=== PATIENT | male | born 1975 | race Caucasian/White ===

== ENCOUNTER 2018-07-01 13:32 | Emergency (ER) | payer SELFPAY ==
[2018-07-01] MEDS ORDERED: DICYCLOMINE HCL INJ 20 MG/2 ML AMPULE IM ONE (13:47)
[2018-07-01] MEDS ORDERED: ONDANSETRON HCL INJ/PF 4 MG/2 ML SDV IV ONE (13:47)
[2018-07-01] MEDS ORDERED: RINGERS SOLUTION,LACTATED 1,000 ML IV ONE (13:47)
[2018-07-01] MEDS ORDERED: DIAZEPAM 5 MG TABLET PO ONE (13:48)
--- NOTE | 2018-07-01 13:52 | ER Document Report ---
ED General - General Chief Complaint: Drug Abuse Stated Complaint: DRUG WITHDRAWAL Time Seen by Provider: 07/01/18 13:40 Mode of Arrival: Ambulatory Information source: Patient Notes: 42-year-old male with a history of heroin abuse presents with complaint of nausea, vomiting, myalgias, and generalized abdominal pain. Patient states symptoms started this morning. He states that he believes that he is going through withdrawal. He reports his last use of heroin was yesterday. He is a daily user. He denies any previous withdrawal, other illicit drugs or alcohol use. Patient did eat this morning. He has been in the methadone program but states that "it did not work". Patient denies any suicidal, homicidal ideation. Mother is at the bedside. TRAVEL OUTSIDE OF THE [place] IN LAST 30 DAYS: No - HPI Onset: Just prior to arrival Onset/Duration: Gradual, Persistent Quality of pain: Cramping Severity: Mild Associated symptoms: Body/muscle aches, Chills, Headache, Nausea, Vomiting, Sweating Exacerbated by: Denies Relieved by: Denies Similar symptoms previously: No Recently seen / treated by doctor: No - Related Data Allergies/Adverse Reactions: No Known Allergies Allergy (Verified 07/01/18 13:32) Past Medical History - General Information source: Patient, Parent, [facility] - Social History Smoking Status: Current Every Day Smoker Cigarette use (# per day): Yes - 15 Smoking Education Provided: Yes - Smoking cessation counseling was provided for 4 minutes at the bedside Frequency of alcohol use: None Drug Abuse: Heroin, Other - Methadone Lives with: Family Family History: Reviewed & Not Pertinent Patient has suicidal ideation: No Patient has homicidal ideation: No - Medical History Medical History: Negative Renal/ Medical History: Denies: Hx Peritoneal Dialysis Review of Systems - Review of Systems Notes: REVIEW OF SYSTEMS: CONSTITUTIONAL : Denies fever. Denies recent illness. Denies weight loss, recent hospitalizations. EENT: Denies visual changes, eye pain. Denies sore throat, oral lesions, difficulty swallowing. CARDIOVASCULAR: Denies chest pain. Denies palpitations. Denies lower extremity edema. RESPIRATORY: Denies cough. Denies shortness of breath, wheezing. GASTROINTESTINAL: Denies abdominal distention. Denies diarrhea. Denies blood in vomitus, stools, or per rectum. Denies black, tarry stools. Denies constipation. GENITOURINARY: Denies difficulty urinating, painful urination, frequency, blood in urine, testicular pain or penile discharge. MUSCULOSKELETAL: Denies back or neck pain or stiffness. Denies joint pain or swelling. SKIN: Denies rash, lesions or sores. HEMATOLOGIC : Denies easy bruising or bleeding. LYMPHATIC: Denies swollen glands. NEUROLOGICAL: Denies confusion or altered mental status. Denies loss of consciousness. Denies dizziness or lightheadedness. Denies headache. Denies weakness or paralysis. Denies problems difficulty with ambulation, slurred speech. Denies sensory loss, numbness, or tingling. Denies seizures. PSYCHIATRIC: Denies anxiety or stress. Denies depression, suicidal ideation, or Physical Exam - Vital signs Vitals: Temp Pulse Resp BP Pulse Ox 97.9 F 79 24 H 141/82 H 97 07/01/18 13:41 07/01/18 13:41 07/01/18 13:41 07/01/18 13:41 07/01/18 13:41 Interpretation: Hypertensive, Tachypneic - Notes Notes: PHYSICAL EXAMINATION: GENERAL: Ill-appearing, actively vomiting HEAD: Atraumatic, normocephalic. EYES: Pupils equal round and reactive to light, extraocular movements intact, sclera anicteric, conjunctiva are normal. ENT: Nares patent, oropharynx clear without exudates. Moist mucous membranes. NECK: Normal range of motion, supple without lymphadenopathy LUNGS: Breath sounds clear to auscultation bilaterally and equal. No wheezes rales or rhonchi. HEART: Regular rate and rhythm without murmurs ABDOMEN: Soft, nontender, nondistended abdomen. No guarding, no rebound. No masses appreciated. Musculoskeletal: Normal range of motion, no pitting or edema. No cyanosis. NEUROLOGICAL: Cranial nerves grossly intact. Normal speech, normal gait. Normal sensory, motor exams PSYCH: Denies suicidal ideation, homicidal ideation. SKIN: Warm, Dry, normal turgor, no rashes or lesions noted. Course - Re-evaluation Re-evalutation: Laboratory 07/01/18 14:00 Sodium 139.6 Potassium 4.5 Chloride 107 Carbon Dioxide 26 Anion Gap 7 BUN 13 Creatinine 0.69 Est GFR ( Amer) > 60 Est GFR (Non-Af Amer) > 60 Glucose 98 Calcium 9.5 42-year-old male presents with symptoms consistent with opiate withdrawal including nausea, vomiting, diarrhea, myalgia, restlessness, anxiety. Vital signs reviewed upon arrival and within normal limits. Patient has a normal neurologic exam. Patient was placed on clip riveter and EKG was obtained. BMP was obtained and showed no electrolyte abnormality. 07/01/18 15:32 Discussed expected withdrawal symptoms with the mother. She states that she is interested in resources for detox for her son. Patient's vital signs have remained stable throughout his ED course. He did receive IV fluids, Zofran, Bentyl, Valium. EKG was obtained and showed the patient to be in normal sinus rhythm at a rate of 69. QTC is not prolonged. Mother agrees to be responsible for home-going prescriptions. Mother and patient provided detox and substance abuse rehab program information sheet. Patient was evaluated and treated as appropriate for the patient's presenting symptoms and complaint, with consideration of any critical or life threatening conditions that may be associated with their obtained history and exam as noted above. All results were discussed with patient and his mother. Patient provided the opportunity to ask questions, and express concerns. Patient was educated on treatments based on their presumed diagnosis as noted above. At this time we will discharge the patient with return precautions and follow-up recommendations. Verbal discharge instructions given a the bedside. Medication warnings reviewed. Patient is in agreement with this plan and has verbalized understanding of return precautions. Home-going medications include clonidine, gabapentin, Zofran. After careful consideration I feel that that patient can be safely discharged from the emergency department, they were advised to followup with a primary care physician in 2-3 days. Dictation on this chart was performed using voice recognition software and may result in unintended grammatical, spelling, syntax or errors. 07/01/18 15:39 07/02/18 10:14 07/02/18 10:18 - Vital Signs Vital signs: Temp Pulse Resp BP Pulse Ox 99.5 F 79 25 H 122/71 96 07/01/18 16:02 07/01/18 16:02 07/01/18 16:01 07/01/18 16:01 07/01/18 16:02 - Laboratory Result Diagrams: 07/01/18 14:00 Discharge - Discharge Clinical Impression: Heroin withdrawal, Abdominal cramping, generalized Nausea & vomiting Qualifiers: Vomiting type: unspecified Vomiting Intractability: non-intractable Qualified Code(s): R11.2 - Nausea with vomiting, unspecified Condition: Good Disposition: HOME, SELF-CARE Instructions: Abdominal Pain ([facility]), Antinausea Medication ([facility]), Antispasmodics ([facility]), Pain Control without Medication ([facility]), Vomiting ([facility]) Additional Instructions: Your seen today for concerns of withdrawing from opiates. Opiate withdrawal is very uncomfortable but is not dangerous. The acute withdrawal phase will last for approximately 1 week and will consist of body aches, headache, nausea, vomiting, diarrhea, and abdominal pain. Sleeping can be difficult. You may also feel depressed or anxious. After the acute withdrawal is finished, it is very common to have chronic opiate withdrawal that can last for months. This can consist of feeling depressed and having cravings for opiates. I strongly encourage you to enroll in an outpatient rehab program and consider going on a medication such as Suboxone to prevent relapse. To help manage your acute withdrawal symptoms your are being sent home with a clonidine patch on. You may keep this patch on for up to 1 week. You have also been sent home with a prescription for a medication called gabapentin. You may take 600 mg nightly again to assist with sleep and withdrawal symptoms. You may take the Zofran also known as ondansetron that she were sent home with as needed for nausea and vomiting. Please return if you become suicidal, have persistent vomiting that prevents you from being able to take fluids for more than 12 hours, you pass out , or you have any other symptoms that are worrisome to you. Follow up with your [id number] hours for further care or return to the ED IMMEDIATELY if symptoms worsen or you have any concerns. If you cannot afford to follow up with your primary care physician a list of low cost clinics have been provided at the end of your discharge papers as well. Most prescribed medications have multiple side effects. The safest thing to do is when filling your prescription speak to your pharmacist regarding possible interactions with your normal home medications and over the counter medications such as Ibuprofen, Tylenol, Benadryl. If you experience any symptoms that cause you discomfort or concern you should discontinue the medication immediately and return to the emergency room or call your primary care physician. Prescriptions: Gabapentin 600 mg PO QHS #14 capsule Clonidine [Catapres-Tts 1 (0.1 mg/24 Hr) Transderm Patch] 1 each TD Q7D #4 patch.tdwk Dicyclomine HCl [Bentyl 20 mg Tablet] 20 mg PO QID #20 tablet Ondansetron [Zofran Odt 4 mg Tablet] 1 - 2 tab PO Q4H PRN #15 tab.rapdis PRN Reason: For Nausea/Vomiting Forms: Elevated Blood Pressure, Smoking Cessation Education
[2018-07-01 14:58] LABS: ANION GAP 7 (5-19); BLOOD UREA NITROGEN 13 mg/dL (7-20); CALCIUM 9.5 mg/dL (8.4-10.2); CARBON DIOXIDE 26 mmol/L (22-30); CHLORIDE 107 mmol/L (98-107); GLUCOSE 98 mg/dL (75-110); POTASSIUM 4.5 mmol/L (3.6-5.0); SODIUM 139.6 mmol/L (137-145)
[2018-07-01] MEDS ORDERED: NORMAL SALINE 250 ML IV ONE (15:14)
[2018-07-01] MEDS ORDERED: LORAZEPAM INJ 2 MG/1 ML VIAL IV ONE (15:28)
[2018-07-01 16:16] VITALS: BP 122/71
--- NOTE | 2018-07-01 19:19 | EKG REPORT ---
SEVERITY:- NORMAL ECG - SINUS RHYTHM : Confirmed by: Deacon Bautista 01-Jul-2018 19:19:21
== END 2018-07-01 16:26 | disposition home or self-care (01) ==
LOC: ER 13:32
DX: F11.23 Opioid dependence with withdrawal (principal); T40.1X1A Poisoning by heroin, accidental (unintentional), initial encounter; R10.84 Generalized abdominal pain; R11.2 Nausea with vomiting, unspecified; M79.10 Myalgia, unspecified site; F17.210 Nicotine dependence, cigarettes, uncomplicated; R19.7 Diarrhea, unspecified; F41.9 Anxiety disorder, unspecified
CPT/HCPCS: 93005; 99284; 96372; 96361; 96374; 96375; 36415; 80048; 93010; J0500; J2060; J2405; J7050; J7120

== ENCOUNTER 2019-06-26 21:27 | Emergency (ER) | payer SELFPAY ==
--- NOTE | 2019-06-26 22:26 | ER Document Report ---
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 Patient reports he had a small area develop 4 days ago, has been getting worse, reports that he "popped it last night" with initial improvement of symptoms but got worse again today. He reports similar symptoms in the past with other areas that are identical to these. He denies fevers. Mechanism of injury: None Location: Right lower leg Onset: 4 days ago, gradual Provocation: Movement Quality: Aching, burning Radiation: Right lower leg Severity: Mild Timing: Constant Numbness/Tingling: None REVIEW OF SYSTEMS: CONSTITUTIONAL : Denies fever or chills, no sweats. Denies recent illness. EENT: Denies eye, ear, throat, or mouth pain or symptoms. Denies nasal or sinus congestion. CARDIOVASCULAR: Denies chest pain. RESPIRATORY: Denies cough, cold, or chest congestion. Denies shortness of breath, difficulty breathing, or wheezing. GASTROINTESTINAL: Denies abdominal pain. Denies nausea, vomiting, or diarrhea. Denies constipation. GENITOURINARY: Denies difficulty urinating, painful urination, burning, frequency, or blood in urine. MUSCULOSKELETAL: Positive for right lower leg pain. SKIN: Positive for right leg infection. HEMATOLOGIC : Denies easy bruising or bleeding. LYMPHATIC: Denies swollen, enlarged glands. NEUROLOGICAL: Denies weakness or paralysis or loss of use of either side. Denies problems with gait or speech. Denies sensory or motor loss. PSYCHIATRIC: Denies anxiety or stress or depression. All other systems reviewed and negative. PHYSICAL EXAMINATION: GENERAL: Well-appearing, well-nourished and in no acute distress. HEAD: Atraumatic, normocephalic. No scalp deformity, depression, or crepitance. EYES: Pupils are 3 mm and equal/round/reactive to light, extraocular movements intact, sclera anicteric, conjunctiva are normal. ENT: Nares patent bilaterally, oropharynx clear without exudates or palatal petechia. Moist mucous membranes. No tonsil hypertrophy. NECK: Normal range of motion, supple without lymphadenopathy. LUNGS: Breath sounds present, equal, and clear to auscultation bilaterally. No wheezes, rales, or rhonchi. HEART: Regular rate and rhythm without murmurs, rubs, or gallops. 2+ peripheral pulses. Normal capillary refill. ABDOMEN: Soft, nontender, nondistended. Normoactive bowel sounds. No guarding, no rebound. No masses appreciated. BACK: Normal contour, no midline tenderness. Rectal exam deferred. GENITAL/PELVC: Deferred. EXTREMITIES: 1 cm fluctuant area with central punctum draining clear/purulent material, 3 to 4 cm area of erythema surrounding. Normal range of motion, no obvious deformity. No pitting or edema. No cyanosis and normal capillary refill <2 seconds. NEUROLOGICAL: No focal neurological deficits. Moves all extremities sponta neously and on command. PSYCH: Normal mood, normal affect. No suicidal thoughts/ideations. No homicidal thoughts/ideations. No hallucinations. SKIN: Warm, dry, normal turgor, no rashes or lesions noted. ASSESSMENT AND PLAN: This patient is a 43-year-old male who presents with likely recurrent MRSA abscess that is draining after the patient performed incision at home. 1. Will give oral Ultram with doxycycline and reassess. 2. Will discharge. TRAVEL OUTSIDE OF THE [place] IN LAST 30 DAYS: No - HPI Patient complains to provider of: Skin rash/lesion, Possible insect bite Onset: Last week Onset/Duration: Gradual Quality of pain: Achy Severity: Mild Pain Level: 1 Skin Character: Abscess, Drainage, Erythema, Tenderness Skin Temperature: Warm Quality of rash: Painful Identify cause: No Exacerbated by: Movement, Walking Relieved by: Denies Similar symptoms previously: Yes Recently seen / treated by doctor: No - Related Data Allergies/Adverse Reactions: No Known Allergies Allergy (Verified 07/01/18 13:32) Past Medical History - General Information source: Patient - Social History Smoking Status: Current Every Day Smoker Chew tobacco use (# tins/day): No Frequency of alcohol use: None Drug Abuse: None Lives with: Alone Family History: Reviewed & Not Pertinent Patient has suicidal ideation: No Patient has homicidal ideation: No - Past Medical History Cardiac Medical History: Reports: None Pulmonary Medical History: Reports: None EENT Medical History: Reports: None Neurological Medical History: Reports: None Endocrine Medical History: Reports: None Renal/ Medical History: Reports: None. Denies: Hx Peritoneal Dialysis Malignancy Medical History: Reports None GI Medical History: Reports: None Musculoskeletal Medical History: Reports None Skin Medical History: Reports None Psychiatric Medical History: Reports: None Traumatic Medical History: Reports: None Infectious Medical History: Reports: None Surgical Hx: Negative Past Surgical History: Reports: None - Immunizations Immunizations up to date: Yes Hx Diphtheria, Pertussis, Tetanus Vaccination: Yes Review of Systems - Review of Systems Constitutional: No symptoms reported EENT: No symptoms reported Cardiovascular: No symptoms reported Respiratory: No symptoms reported Gastrointestinal: No symptoms reported Genitourinary: No symptoms reported Male Genitourinary: No symptoms reported Musculoskeletal: No symptoms reported Skin: See HPI, Lesions Hematologic/Lymphatic: No symptoms reported Neurological/Psychological: No symptoms reported -: Yes All other systems reviewed and negative Physical Exam - Vital signs Vitals: Temp Pulse Resp BP Pulse Ox 98.3 F 70 18 112/55 L 98 06/26/19 21:42 06/26/19 21:42 06/26/19 21:42 06/26/19 21:42 06/26/19 21:42 Interpretation: Normal Course - Re-evaluation Re-evalutation: 06/27/19 00:06 Will discharge the patient home with strict return precautions and follow-up with primary care. All results were explained to and discussed with the patient, and all questions addressed and answered. The patient voices both understanding and agreeing with the plan. - Vital Signs Vital signs: Temp Pulse Resp BP Pulse Ox 98.3 F 70 18 112/55 L 98 06/26/19 21:42 06/26/19 21:42 06/26/19 21:42 06/26/19 21:42 06/26/19 21:42 Discharge - Discharge Clinical Impression: MRSA abscess of the right lower leg Condition: Good Disposition: HOME, SELF-CARE Instructions: MRSA Cellulitis ([facility]), Family Physicians / Practices Additional Instructions: You have been evaluated in the Emergency Department for pain and swelling around an area of infection in the right leg, known as an abscess with cellulitis. While here, you were given medications and it is now safe to be discharged home. Please follow-up with your primary physician as instructed in one week to be rechecked. Return to the Emergency Department if you experience high fevers, worsening pain, worsening swelling of your leg, or any other concerning symptoms. Prescriptions: Tramadol HCl [Ultram] 50 mg PO Q6HP PRN #28 tablet PRN Reason: For Pain Doxycycline Hyclate 100 mg PO BID #20 capsule Print Language: Yi
[2019-06-26] MEDS ORDERED: TRAMADOL HCL 50 MG TABLET PO ONE (23:31)
[2019-06-26] MEDS ORDERED: DOXYCYCLINE HYCLATE 100 MG TABLET PO ONE (23:31)
[2019-06-27 00:24] VITALS: BP 110/60
== END 2019-06-27 00:21 | disposition home or self-care (01) ==
LOC: ER 21:27
DX: L02.415 Cutaneous abscess of right lower limb (principal); B95.62 Methicillin resistant Staphylococcus aureus infection as the cause of diseases classified elsewhere; I10 Essential (primary) hypertension; F17.200 Nicotine dependence, unspecified, uncomplicated

== ENCOUNTER 2020-05-12 17:46 | Emergency (ER) | payer SELFPAY ==
[2020-05-12] MEDS ORDERED: NORMAL SALINE 1000 ML 1,000 ML IV ONE (19:37)
--- NOTE | 2020-05-12 19:39 | ER Document Report ---
ED Medical Screen (RME) - General Chief Complaint: Abdominal Pain Stated Complaint: ABDOMINAL PAIN Time Seen by Provider: 05/12/20 19:32 Mode of Arrival: Ambulatory Information source: Patient Notes: 44-year-old male presents to ED for complaint of sharp abdominal pain both sides of his abdomen x3 days. He states is a level 4 at this time. He states the pain is much worse when he is sitting up. He has been nauseated and has vomited yesterday. He has not had any fevers. His abdomen is distended at this time. Sounds are present at this time. He is alert oriented respirations regular nonlabored speaking in full sentences. He states he only past medical history as his MRSA. He does smoke a pack and a half a day does not drink or use any drugs. He states he has not had any prior surgical history. I have greeted and performed a rapid initial assessment of this patient. A comprehensive ED assessment and evaluation of the patient, analysis of test results and completion of medical decision making process will be conducted by an additional ED providers. TRAVEL OUTSIDE OF THE [place] IN LAST 30 DAYS: No - Related Data Allergies/Adverse Reactions: No Known Allergies Allergy (Verified 07/01/18 13:32) Past Medical History Renal/ Medical History: Denies: Hx Peritoneal Dialysis - Immunizations Immunizations up to date: Yes Hx Diphtheria, Pertussis, Tetanus Vaccination: Yes Physical Exam - Vital signs Vitals: Temp Pulse Resp BP Pulse Ox 98.3 F 74 16 135/74 H 99 05/12/20 17:53 05/12/20 17:53 05/12/20 17:53 05/12/20 17:53 05/12/20 17:53 Course - Vital Signs Vital signs: Temp Pulse Resp BP Pulse Ox 98.3 F 74 16 135/74 H 99 05/12/20 17:53 05/12/20 17:53 05/12/20 17:53 05/12/20 17:53 05/12/20 17:53
[2020-05-12 20:17] LABS: ABSOLUTE BASOPHILS # (AUTO) 0.1 10^3/uL (0.0-0.2); ABSOLUTE EOSINOPHILS # (AUTO) 0.5 10^3/uL (0.0-0.6); ABSOLUTE LYMPHOCYTES (AUTO) 2.5 10^3/uL (0.5-4.7); ABSOLUTE NEUT (AUTO) 5.6 10^3/uL (1.7-8.2); BASOPHILS % (AUTO) 0.8 % (0-2); EOSINOPHILS % (AUTO) 4.8 % (0-6); HEMATOCRIT 41.6 % (37.9-51.0); HEMOGLOBIN 14.1 g/dL (13.5-17.0); LYMPHOCYTES % (AUTO) 26.2 % (13-45); MEAN CORPUSCULAR HEMOGLOBIN 29.7 pg (27.0-33.4); MEAN CORPUSCULAR HGB CONC 33.9 g/dL (32.0-36.0); MEAN CORPUSCULAR VOLUME 88 fl (80-97); MONOCYTES % (AUTO) 10.4 % (3-13); PLATELET COUNT 310 10^3/uL (150-450); RED BLOOD COUNT 4.75 10^6/uL (4.35-5.55); RED CELL DISTRIBUTION WIDTH 14.1 % (11.5-14.0); SEGMENTED NEUTROPHILS % (AUTO) 57.8 % (42-78); TOTAL CELLS COUNTED % (AUTO) 100 %; WHITE BLOOD COUNT 9.6 10^3/uL (4.0-10.5)
[2020-05-12] MEDS ORDERED: MORPHINE SULFATE 10 MG/ML INJ IV ONE ×2 (20:21→21:39)
[2020-05-12] MEDS ORDERED: ONDANSETRON HCL INJ/PF 4 MG/2 ML SDV IV ONE (20:21)
--- NOTE | 2020-05-12 20:26 | ER Document Report ---
ED GI/ - General Chief Complaint: Abdominal Pain Stated Complaint: ABDOMINAL PAIN Time Seen by Provider: 05/12/20 19:32 Mode of Arrival: Ambulatory Notes: CHIEF COMPLAINT: Abdominal pain for 3 days HPI: 44-year-old male presenting to the emergency department complaining of progressive generalized abdominal pain for 3 days with some distention of the abdomen. Denies history of abdominal surgeries does indicate he has an umbilical hernia but states it feels unchanged from prior. States he has been moving his bowels. No diarrhea. Has had nausea no vomiting. No fever. Patient does report history of kidney stones ROS: See HPI - all other systems were reviewed and are otherwise negative Constitutional: no fever Eyes: no drainage, no blurred vision ENT: no runny nose, no sore throat Cardiovascular: no chest pain Resp: no SOB, no cough GI: no vomiting, no diarrhea, + abdominal pain : no dysuria Integumentary: no rash Allergy: no hives Musculoskeletal: no extremity pain or swelling Neurological: no numbness/tingling, no weakness MEDICATIONS: I agree with the patient medications as charted by the RN. ALLERGIES: I agree with the allergies as charted by the RN. PAST MEDICAL HISTORY/PAST SURGICAL HISTORY: Reviewed and agree as charted by RN. SOCIAL HISTORY: Reviewed and agree as charted by RN. FAMILY HISTORY: No significant familial comorbid conditions directly related to patient complaint EXAM: Reviewed vital signs as charted by RN. CONSTITUTIONAL: Alert and oriented and responds appropriately to questions. Well-appearing; well-nourished HEAD: Normocephalic; atraumatic EYES: PERRL; Conjunctivae clear, sclerae non-icteric ENT: normal nose; no rhinorrhea; moist mucous membranes; pharynx without lesions noted, no uvula edema or deviation, no tonsillar hypertrophy, phonation normal NECK: Supple without meningismus; non-tender; no cervical lymphadenopathy, no masses CARD: RRR; no murmurs, no clicks, no rubs, no gallops; symmetric distal pulses RESP: Normal chest excursion without splinting or tachypnea; breath sounds clear and equal bilaterally; no wheezes, no rhonchi, no rales, pulse oximetry 99% on room air not hypoxic ABD/GI: Hypoactive mildly bowel sounds; non-distended; soft, generalized tenderness on palpation of the abdomen, no rebound, no guarding; no palpable org anomegaly or masses. There is an umbilical hernia that is slightly purplish in color unable to reduce secondary to pain BACK: The back appears normal and is non-tender to palpation, there is no CVA tenderness EXT: Normal ROM in all joints; non-tender to palpation; no cyanosis, no effusions, no edema SKIN: Normal color for age and race; warm; dry; good turgor; no acute lesions noted NEURO: Moves all extremities equally; Motor and sensory function intact PSYCH: The patient's mood and manner are appropriate. Grooming and personal hygiene are appropriate. MDM: 44-year-old male generalized abdominal pain 3 days progressively worsening. Does have a small umbilical hernia that I was unable to reduce secondary to pain. Initial screening labs show a normal WBC count awaiting CT TRAVEL OUTSIDE OF THE [place] IN LAST 30 DAYS: No - Related Data Allergies/Adverse Reactions: No Known Allergies Allergy (Verified 07/01/18 13:32) Past Medical History - General Information source: Patient - Social History Smoking Status: Current Every Day Smoker Family History: Reviewed & Not Pertinent Patient has homicidal ideation: No Renal/ Medical History: Denies: Hx Peritoneal Dialysis - Immunizations Immunizations up to date: Yes Hx Diphtheria, Pertussis, Tetanus Vaccination: Yes Physical Exam - Vital signs Vitals: Temp Pulse Resp BP Pulse Ox 98.3 F 74 16 135/74 H 99 05/12/20 17:53 05/12/20 17:53 05/12/20 17:53 05/12/20 17:53 05/12/20 17:53 Course - Re-evaluation Re-evalutation: 05/13/20 00:[address] Morales the surgeon about the patient CT findings. Radiologist did not believe that oral contrast had reached the level of the appendix to give a definitive evaluation of appendicitis versus diverticulitis. I spoke with Dr. Castorena the reading radiologist and he believes that enough time is past that we can reimage the patient for him to get a better evaluation. Dr. Morales is in agreement with this plan and is aware of the patient, he requests I hold antibiotics at this time. I spoke with the patient about this and he is aware that he will need reimaging 05/13/20 02:[address] shows diverticulitis not appendicitis. Will start on antibiotics oral pain medications follow-up gastroenterology. discussed with Dr. Vu, attending. - Vital Signs Vital signs: Temp Pulse Resp BP Pulse Ox 98.3 F 74 16 135/74 H 99 05/12/20 17:53 05/12/20 17:53 05/12/20 17:53 05/12/20 17:53 05/12/20 17:53 - Laboratory Result Diagrams: 05/12/20 19:36 05/12/20 20:08 Laboratory results interpreted by me: 05/12/20 05/12/20 19:36 20:08 RDW 14.1 H Ur Leukocyte Esterase TRACE H Discharge - Discharge Clinical Impression: Abdominal pain, LLQ, Acute diverticulitis of intestine Condition: Stable Disposition: HOME, SELF-CARE Additional Instructions: CT imaging did not show evidence of appendicitis today did show diverticulitis and inflammation of the diverticula of your colon. Take the antibiotics and pain medications as prescribed no driving if taking narcotics for pain. Follow- up with gastroenterology for further evaluation and treatment return to the emergency department if you develop uncontrolled pain or fever greater than 101 Prescriptions: Ciprofloxacin HCl [Cipro 500 mg Tablet] 500 mg PO BID #20 tablet Metronidazole [Flagyl 500 mg Tablet] 500 mg PO TID #21 tablet Hydrocodone/Acetaminophen [Irving 5-325 mg Tablet] 1 tab PO Q4 PRN #15 tablet PRN Reason: Referrals: RENEE TOLBERT MD [ACTIVE STAFF] - Follow up as needed
[2020-05-12 20:28] LABS: ALBUMIN 4.6 g/dL (3.5-5.0); ALKALINE PHOSPHATASE 74 U/L (38-126); ANION GAP 7 (5-19); ASPARTATE AMINO TRANSFERASE 22 U/L (17-59); BILIRUBIN,TOTAL 0.3 mg/dL (0.2-1.3); BLOOD UREA NITROGEN 13 mg/dL (7-20); CALCIUM 9.8 mg/dL (8.4-10.2); CARBON DIOXIDE 30 mmol/L (22-30); CHLORIDE 104 mmol/L (98-107); GLUCOSE 96 mg/dL (75-110); POTASSIUM 4.4 mmol/L (3.6-5.0); TOTAL PROTEIN 7.8 g/dL (6.3-8.2)
[2020-05-12 20:34] LABS: APPEARANCE,URINE CLEAR; BILIRUBIN,URINE NEGATIVE (NEGATIVE); COLOR,URINE YELLOW; GLUCOSE, URINE NEGATIVE (NEGATIVE); KETONES,URINE NEGATIVE (NEGATIVE); LEUKOCYTE ESTERASE,URINE TRACE (NEGATIVE); NITRITE,URINE NEGATIVE (NEGATIVE); PROTEIN,URINE NEGATIVE (NEGATIVE); UROBILINOGEN,URINE NEGATIVE mg/dL (<2.0)
--- NOTE | 2020-05-12 22:56 | RADIOLOGY REPORT (SQ) ---
EXAM DESCRIPTION: [facility]: CT ABDOMEN PELVIS WITH IV CONTRAST CLINICAL HISTORY: 44 years Male; Bilateral abdominal pain nausea some vomiting dist; TECHNIQUE: CT of the abdomen and pelvis using intravenous and oral contrast All CT scans at this facility use dose modulation, iterative reconstruction, and/or weight based dosing when appropriate to reduce radiation dose to as low as reasonably achievable. COMPARISON: None. FINDINGS: Abdomen: Stomach: No significant distention or surrounding edema. Liver:No focal lesions. No intrahepatic ductal distention. Gallbladder:Nondistended Pancreas:Within normal limits Spleen:Within normal limits Right kidney:No hydronephrosis. No focal lesion. Left kidney:No hydronephrosis. No focal lesion. Adrenal glands:Within normal limits Vascular structures:Within normal limits Pelvis: Small bowel:No significant distention. Appendix:Within normal limits Colon: There is a 1.5 cm diameter diverticulum of the proximal colon with mild adjacent edema. Although difficult to reliably determine since the oral contrast has not yet reached the proximal colon, this is likely a diverticulum and not the appendix. If clinically relevant, a follow-up exam after oral contrast has passed through this region may be helpful. There is no extraluminal air or fluid collection. A few other scattered diverticula are noted elsewhere in the colon. No free intraperitoneal fluid or air. Bones: No acute bone findings. Bladder: Unremarkable. No pelvic mass or adenopathy. IMPRESSION: 1. Acute appendicitis in an atypical appendix versus proximal colonic diverticulitis. 2. No obstruction, perforation, or abscess.
[2020-05-13] MEDS ORDERED: MORPHINE SULFATE 10 MG/ML INJ IV ONE (00:51)
[2020-05-13] MEDS ORDERED: CIPROFLOXACIN HCL 500 MG TABLET PO ONE (02:06)
[2020-05-13] MEDS ORDERED: HYDROCODONE/ACETAMINOPHEN 5-325 MG TABLET PO ONE (02:06)
[2020-05-13] MEDS ORDERED: METRONIDAZOLE 500 MG TABLET PO ONE (02:06)
[2020-05-13] MEDS ORDERED: HYDROCODONE/ACETAMINOPHEN 5-325 MG (6 TAB/ER DISP) PO PRN (02:06)
[2020-05-13 02:26] VITALS: BP 123/71
== END 2020-05-13 02:26 | disposition home or self-care (01) ==
LOC: ER 17:46
DX: K57.32 Diverticulitis of large intestine without perforation or abscess without bleeding (principal); K42.9 Umbilical hernia without obstruction or gangrene; R10.84 Generalized abdominal pain; R10.817 Generalized abdominal tenderness; F17.200 Nicotine dependence, unspecified, uncomplicated
CPT/HCPCS: 96376; 99285; 96361; 96374; 96375; 36415; 83690; 85025; 80053; 81001; 74177; J2270 ×2; J2405; J7030